=== PATIENT | female | born 1945 | race Caucasian/White ===

== ENCOUNTER 2016-11-16 06:39 | Inpatient (IN) | payer MEDICARE, OTHER ==
[2016-11-14 10:39] VITALS: BMI 29.0
[2016-11-16] MEDS ORDERED: COCAINE HCL 4% TOPICAL SOLUTION 4 ML BOTTLE TP ONE (08:17)
[2016-11-16] MEDS ORDERED: LIDOCAINE 1%/EPI 1:100000 (20 ML MULTI DOSE VIAL) IJ ONE (08:19)
[2016-11-16] MEDS ORDERED: oxyCODONE HCL 5 MG TABLET PO PRN (09:22)
[2016-11-16] MEDS ORDERED: ACETAMINOPHEN 500 MG TABLET (FP) PO PRN (09:22)
[2016-11-16] MEDS ORDERED: ONDANSETRON 4 MG/2 ML VIAL IVPUSH PRN (09:22)
[2016-11-16] MEDS ORDERED: ACETAMINOPHEN 650 MG/20.3 ML ORAL SOLUTION (CUPS) PO PRN (09:37)
[2016-11-16] MEDS ORDERED: ACETAMINOPHEN INJECTION 100 ML IVPB ONE (10:24)
--- NOTE | 2016-11-16 12:29 | OP ---
DATE OF OPERATION: 11/16/2016 PREOPERATIVE DIAGNOSIS: Obstructive sleep apnea, deviated septum, turbinate hypertrophy. POSTOPERATIVE DIAGNOSIS: Obstructive sleep apnea, deviated septum, turbinate hypertrophy. PROCEDURE: Pharyngoplasty, septoplasty, submucous resection bilateral inferior turbinates. INDICATION: The patient is a 70-year-old female who has had a history of chronic, severe snoring, witnessed apnea, and daytime fatigue. She had a previous sleep study, which did show evidence of severe obstructive sleep apnea and has been unable to tolerate CPAP at all despite prolonged and multiple attempts at therapy. On serial exam, she also has chronic nasal obstructive symptoms and on serial exam is noted to have marked deviated septum to the left inferiorly and to the right posteriorly and superiorly, bilateral turbinate hypertrophy, 2-1/2 to 3+ palatine tonsils, marked soft palate redundancy with marked uvular hypertrophy as well as tongue base collapse, and she opted to have more limited surgery and wished to address both the deviated septum, turbinate hypertrophy, and soft palate but wished to avoid addressing the tongue base. The patient understood risks, benefits, and alternatives and did wish to proceed. ANESTHESIA: General endotracheal intubation. ANESTHESIOLOGIST: Dr. Bettencourt DESCRIPTION OF PROCEDURE: The patient was brought to the operating room and placed in supine position. After successful induction of anesthesia and placement of endotracheal tube, the patient was prepped and draped in usual sterile fashion. McIvor mouth gag was placed into the oral cavity and retracted open to expose the oropharynx, which was suspended from the Monterroso stand. Tonsils were noted to be 2 -1/2 to 3+ bilaterally and markedly cryptic. Tonsillar fossa as well as soft tissue mucosa was injected with approximately 6 mL of 1% lidocaine with 1:100,000 epinephrine. A subcapsular plane using the Coblation device with EVac Xtra handpiece was used to perform subcapital removal of bilateral tonsils preserving anterior and posterior tonsillar pillar mucosa. Bleeding was controlled using bipolar coblation device. No active bleeding was noted. Attention was then brought to the soft palate. Modified pharyngoplasty was performed with preservation of the base of the uvula. A vertically-oriented incision was made and extended from the base of the uvula superiorly through and through the soft palate anteriorly and posteriorly approximately 1.5 cm. Lateral incisions were made and extended from the superior aspect of the previously made incision to the superior aspect of the tonsillar pillar incisions that were made at the time of tonsil removal. Submucosal tissue along the soft palate was then removed inferiorly and then the posterior soft palate was then rotated superiorly and laterally then used to fill the defect that was previously created and sutured in place using multiple interrupted 3-0 Vicryl sutures. Anterior and posterior soft palate mucosa was also reimbricated. Tonsillar pillar mucosa was also imbricated using 3-0 Vicryl sutures. The uvula was trimmed approximately 50%. The uvula was trimmed and bleeding controlled with the bipolar. There was no evidence of active bleeding. Mouth gag was removed with no evidence of injury to dentition or mucosa. Attention was then brought to the nasal cavity. Pledgets soaked in 4% cocaine were placed into bilateral nasal cavities to establish vasoconstriction, and an additional 5 mL of 1% lidocaine with 1:100,000 epinephrine was injected into the bilateral septal mucosa as well as the inferior turbinate mucosa. A stab incision was made anteriorly in the bilateral inferior turbinate mucosa. The septum was addressed first. Standard right-sided hemitransfixion incision was made and a mucoperichondrial flap then elevated on the right side. A vertically oriented septal cartilage incision was made, leaving a 2-cm anterior and superior strut and then mucoperichondrial flap then elevated on the opposite side. The area of deflected cartilage was removed using a swivel knife as well as Cristel forceps and Jayce-Lola forceps. No wewqulf-tej-xlamdae septal perforators noted. Septal mucosa was matched to itself using 3-0 chromic sutures with some improvement of the nasal airway. The inferior turbinates were then dressed. A stab incision was made anteriorly. Submucosal tunnel created. The microdebrider with the inferior turbinate handpiece was used to perform submucosal removal of tissue anteriorly and superiorly down to the level of the turbinates. The inferior turbinates were then outfractured. NasaPore sterile packing was placed in the nasal cavities for hemostasis. The patient tolerated the procedure well and was extubated and brought to the recovery room in stable condition. ESTIMATED BLOOD LOSS: 30 mL. SPECIMENS: Bilateral tonsils, palate, and septal cartilage. Jaki [id number]
[2016-11-16] MEDS: SUCRALFATE 1 GM/10 ML UNIT DOSE CUPS PO SCH ×2 (14:45→21:44)
[2016-11-16] MEDS: morphine CARPU-JECT 2 MG/1 ML DISP.SYRIN IVPUSH PRN ×2 (17:58→20:59)
[2016-11-16] MEDS: LACTATED RINGERS SOLUTION 1,000 ML IV SCH (18:36)
[2016-11-17] MEDS: LACTATED RINGERS SOLUTION 1,000 ML IV SCH ×3 (05:43→22:45)
[2016-11-17] MEDS: morphine CARPU-JECT 2 MG/1 ML DISP.SYRIN IVPUSH PRN (05:43)
[2016-11-17] MEDS ORDERED: DEXAMETHASONE SOD PHOSPHATE 4 MG/1 ML VIAL IVPUSH ONE (08:30)
[2016-11-17] MEDS ORDERED: DEXAMETHASONE SOD PHOSPHATE 10 MG/1 ML VIAL IVPUSH ONE (08:30)
[2016-11-17] MEDS: SUCRALFATE 1 GM/10 ML UNIT DOSE CUPS PO SCH ×2 (11:00→22:06)
--- NOTE | 2016-11-17 13:37 | PATH ---
Surgical Pathology Report Patient Name: LIAM BARRERA [facility]. Rec. #: [id number] /Age/Gender: 1945 (Age: 70) / F Account: [id number] Location: [address] [place] [address]/[facility] Taken: 11/16/2016 Received: 11/16/2016 Reported: 11/17/2016 Physicians: Gerry Mcclure M.D. Specimen(s) Received A: RIGHT TONSIL B: PALATE C: LEFT TONSIL D: SEPTAL CARTILAGE Clinical History Deviated septum Final Diagnosis A. TONSIL, RIGHT, EXCISION: REACTIVE FOLLICULAR LYMPHOID HYPERPLASIA. B. PALATE, EXCISION: BENIGN SQUAMOUS MUCOSA WITH MINOR SALIVARY GLAND AND SKELETAL MUSCLE PRESENT, CONSISTENT WITH PORTIONS OF SOFT PALATE. C. TONSIL, LEFT, EXCISION: REACTIVE FOLLICULAR LYMPHOID HYPERPLASIA. D. NASAL SEPTUM, PARTIAL EXCISION: THIN BONE AND CARTILAGE CONSISTENT WITH PORTIONS OF NASAL SEPTUM. Electronically Signed Lazaro Williamson M.D. Gross Description A. Received in formalin labeled "right tonsil," is a 2.8 x 1.8 x 0.9 cm ovoid portion of soft tissue, consistent with a tonsil. The outer surface is bajwa pink, convoluted and varies from smooth to cauterized. Sectioning reveals focal yellow granules. The tonsillar parenchyma is bajwa-pink with cryptic architecture. [employer] sections are submitted in one cassette. B. Received in formalin labeled "palate," is a 2.4 x 1.6 x 0.6 cm aggregate of bajwa pink soft tissue fragments. Sectioning reveals bajwa-pink parenchyma with cryptic architecture. Gmat Instructor sections are submitted in one cassette. C. Received in formalin labeled "left tonsil," is a 3.5 x 1.7 x 1.0 cm ovoid portion of soft tissue, consistent with a tonsil. The outer surface is bajwa-pink, convoluted and varies from smooth to cauterized. Sectioning reveals a 0.5 cm bajwa-julian calculus. The attached tonsillar parenchyma is bajwa-pink with cryptic architecture. G[employer] Instructor sections are submitted in one cassette. D. Received in formalin labeled "septal cartilage," is a 3.3 x 2.8 x 0.3 cm aggregate of bajwa red fragments of bone and cartilage. Gmat Instructor sections are submitted in one cassette, following decalcification. /11/16/2016 [facility]/11/16/2016
[2016-11-18] MEDS: morphine CARPU-JECT 2 MG/1 ML DISP.SYRIN IVPUSH PRN (06:17)
[2016-11-18] MEDS: LACTATED RINGERS SOLUTION 1,000 ML IV SCH ×2 (07:44→09:39)
[2016-11-18] MEDS: SUCRALFATE 1 GM/10 ML UNIT DOSE CUPS PO SCH ×2 (09:39→09:41)
[2016-11-18 14:39] VITALS: BP 140/72; PULSE 72; TEMP 97.8
== END 2016-11-18 20:20 | disposition home or self-care (01) | DRG 134 ==
LOC: JASUSAT 06:39 → J6S 14:05 → JASUSAT 11-17 06:39 → J6S 11-17 06:39
PROVIDERS: ADMIT Otolaryngology; ATTEND Otolaryngology
PROC: 0CQ Mouth and Throat, Repair (ICD-10-PCS; principal; 2016-11-16 08:00)
PROC: 09BL7ZZ Excision of Nasal Turbinate, Via Natural or Artificial Opening (ICD-10-PCS; 2016-11-16 08:00)
DX: J34.2 Deviated nasal septum (principal); G47.33 Obstructive sleep apnea (adult) (pediatric); J34.3 Hypertrophy of nasal turbinates; I11.0 Hypertensive heart disease with heart failure
CPT/HCPCS: 88302-TC; 88304-TC; 88311-TC; 94760